=== PATIENT | female | born 1965 | race Caucasian/White ===

== ENCOUNTER 2023-07-17 05:03 | Inpatient (IN) | payer OTHER ==
[2023-07-17] VITALS (7 sets, daily range): BP systolic 97–114; BP diastolic 54–77; TEMP 97–98.2; O2SAT 96–98
[~2023-07-17] VITALS: Ht 157.5 cm; Wt 93.0 kg
[2023-07-17] MEDS ORDERED: FENTANYL PF 250MCG/5ML AMPUL ONE (06:16)
[2023-07-17] MEDS ORDERED: KETAMINE HCL (500MG/10ML) 50 MG/ML VIAL ONE (06:16)
[2023-07-17] MEDS ORDERED: FAMOTIDINE/PF INJ 20 MG/2 ML VIAL IV ONE (06:17)
[2023-07-17] MEDS ORDERED: MIDAZOLAM HCL 2 MG/2ML VIAL ONE (06:17)
[2023-07-17] MEDS ORDERED: POLYMYXIN B SULFATE 500,000 UNITS ONE (06:26)
[2023-07-17] MEDS ORDERED: BUPIVACAINE 0.5 % PF 150 MG/30 ML VIAL ONE ×2 (06:26→06:31)
[2023-07-17] MEDS ORDERED: TRANEXAMIC ACID 1,000 MG/10 ML VIAL ONE ×2 (07:13→08:26)
[2023-07-17] MEDS ORDERED: TOPI50TA24 PO (10:30)
[2023-07-17] MEDS ORDERED: BISACODYL SUPP (10 MG) 10 MG/SUPP.RECT SUPP.RECT RC PRN (10:30)
[2023-07-17] MEDS ORDERED: OXYC1TAB12 MT (10:30)
[2023-07-17] MEDS ORDERED: MENTHOL/CETYLPYRD (CEPACOL) 1 LOZ LOZENGE PO PRN (10:30)
[2023-07-17] MEDS ORDERED: diphenhydrAMINE HCL 25 MG CAPSULE PO PRN (10:30)
[2023-07-17] MEDS ORDERED: ASPI-1169 PO (10:30)
[2023-07-17] MEDS ORDERED: ACETAMINOPHEN 325 MG TABLET PO PRN ×2 (10:30→17:00)
[2023-07-17] MEDS ORDERED: OMEP20CA15 PO (10:30)
[2023-07-17] MEDS ORDERED: MAG HYDROX/AL HYDROX/SIMETH 30 ML UDC PO PRN ×2 (10:30→17:00)
[2023-07-17] MEDS ORDERED: MAGNESIUM HYDROXIDE 30 ML UDC PO PRN ×2 (10:30→17:00)
[2023-07-17] MEDS ORDERED: ALBU18HF2 IH (10:30)
[2023-07-17] MEDS ORDERED: oxyCODONE IR immediate release 5 MG TABLET PO PRN (10:30)
[2023-07-17] MEDS ORDERED: NALOXONE HCL 0.4 MG/ML AMPUL IV PRN (10:30)
[2023-07-17] MEDS ORDERED: SENNOSIDES 8.6 MG TABLET PO PRN (10:30)
[2023-07-17] MEDS ORDERED: ZOLPIDEM TARTRATE 5 MG TABLET PO PRN ×2 (10:30→17:00)
[2023-07-17] MEDS ORDERED: PHEN15CA PO (10:30)
[2023-07-17] MEDS ORDERED: FURO-145 PO (10:30)
[2023-07-17] MEDS ORDERED: CLONIDINE HCL 0.1 MG TABLET PO PRN (10:30)
[2023-07-17] MEDS ORDERED: ONDANSETRON HCL/PF 4 MG/2 ML VIAL IV PRN (10:30)
[2023-07-17] MEDS ORDERED: GABA300C PO (10:30)
[2023-07-17] MEDS ORDERED: LOSA25TA27 PO (10:30)
[2023-07-17] MEDS: GABAPENTIN 300 MG CAPSULE PO SCH (11:44)
[2023-07-17] MEDS: IV D5/0.45 NACL 1,000 ML IV PRN (12:53)
[2023-07-17] MEDS ORDERED: oxyCODONE/APAP (5/325 MG) 1 UDTAB TABLET PO PRN ×2 (13:30)
[2023-07-17] MEDS ORDERED: ALBUTEROL FS 2.5 MG/0.5 ML VIAL.NEB HHN PRN (13:30)
[2023-07-17] MEDS: ANCEF 1 GM/50 ML D5W IV SCH (16:42)
[2023-07-17] MEDS ORDERED: ONDANSETRON HCL/PF 4 MG/2 ML VIAL IVP PRN (17:00)
[2023-07-17] MEDS ORDERED: Z GUARD REMEDY 4 OZ OINT TP PRN (17:00)
[2023-07-17] MEDS ORDERED: FAMOTIDINE (20 MG) 20 MG TABLET PO SCH (17:00)
[2023-07-17] MEDS: oxyCODONE IR immediate release 5 MG TABLET PO ONE (17:02)
[2023-07-17] MEDS: DOCUSATE SODIUM 100 MG CAPSULE PO SCH (17:02)
[2023-07-17] MEDS: oxyCODONE IR immediate release 5 MG TABLET PO PRN (22:20)
[2023-07-18] MEDS: HYDROMORPHONE 1 MG/1 ML DISP.SYRIN IV PRN (04:35)
[2023-07-18 07:19] LABS: BASOPHILS % (AUTO) 0.1 % (0.0-2.0); HEMATOCRIT 28 % (33-45); HEMOGLOBIN 9.3 g/dL (11.5-14.8); LYMPHOCYTES # (AUTO) 1.4 K/uL (0.8-4.8); LYMPHOCYTES % (AUTO) 17.2 % (20.0-44.0); MEAN CORPUSCULAR HEMOGLOBIN 31 PG (26.0-33.0); MEAN CORPUSCULAR HGB CONC 33 g/dl (31.0-36.0); MEAN CORPUSCULAR VOLUME 95 fL (82-100); MONOCYTES # (AUTO) 0.6 K/uL (0.1-1.30); MONOCYTES % (AUTO) 7.3 % (2.0-12.0); NEUTROPHILS # (AUTO) 6.1 K/uL (1.8-8.9); NEUTROPHILS % (AUTO) 75.4 % (43.0-81.0); PLATELET COUNT (AUTO) 194 K/uL (150-450); RED BLOOD CELL COUNT(AUTO) 2.99 MIL/uL (4.0-5.2); RED CELL DISTRIBUTION WIDTH 15.5 % (11.5-15.0); WHITE BLOOD COUNT (AUTO) 8.2 K/uL (4.3-11.0)
[2023-07-18 07:30] VITALS: BP 108/62; TEMP 98.1; O2SAT 97
[2023-07-18 07:43] LABS: CALCIUM, SERUM 8.5 mg/dL (8.5-10.1); CREATININE 0.7 mg/dL (0.6-1.3); MAGNESIUM 1.8 mg/dL (1.8-2.4); POTASSIUM 4.1 mmol/L (3.5-5.1)
[2023-07-18] MEDS: ASPIRIN 325 MG TABLET PO SCH (08:33)
[2023-07-18] MEDS: PANTOPRAZOLE 40 MG TABLET.DR PO SCH (08:33)
[2023-07-18] MEDS: FUROSEMIDE 20 MG TABLET PO SCH (08:34)
[2023-07-18 09:00] VITALS: BP 108/62
[2023-07-18] MEDS ORDERED: ASPIRIN 81 MG TAB.CHEW PO SCH (09:00)
[2023-07-18] MEDS: LOSARTAN POTASSIUM 25 MG TABLET PO SCH (09:00)
[2023-07-18] MEDS ORDERED: PHENTERMINE HCL 15 MG PO SCH (09:00)
[2023-07-18] MEDS: TOPIRAMATE 25 MG TABLET PO SCH (09:32)
== END 2023-07-18 16:00 | disposition home or self-care (01) | DRG 483 ==
LOC: DS 05:03 → MED 10:06
PROVIDERS: ADMIT Student in an Organized Health Care Education/Training Program
PROC: 0RRJ00Z Replacement of Right Shoulder Joint with Reverse Ball and Socket Synthetic Substitute, Open Approach (ICD-10-PCS; principal; 2023-07-17)
PROC: 0LS30ZZ Reposition Right Upper Arm Tendon, Open Approach (ICD-10-PCS; 2023-07-17)
DX: M12.811 Other specific arthropathies, not elsewhere classified, right shoulder (principal); I11.0 Hypertensive heart disease with heart failure; I50.9 Heart failure, unspecified; G47.33 Obstructive sleep apnea (adult) (pediatric); D64.9 Anemia, unspecified; E66.01 Morbid (severe) obesity due to excess calories; E89.0 Postprocedural hypothyroidism; F32.A Depression, unspecified; K21.9 Gastro-esophageal reflux disease without esophagitis; Z90.710 Acquired absence of both cervix and uterus; Z68.37 Body mass index [BMI] 37.0-37.9, adult
CPT/HCPCS: 36415; 80048-TC; 83735-TC; 84100-TC; 85025-TC; 86850-TC; G0378; J0330; J0690; J1100; J1170; J1885; J2250; J2405; J2704; J2765; J3010; J3490; J7060